=== PATIENT | female | born 1985 | race African-American/Black ===

== ENCOUNTER 2020-11-30 13:01 | Emergency (ER) | payer MEDICAID ==
[~2020-11-30] VITALS: Ht 170.2 cm; Wt 73.0 kg
[~2020-11-30 13:01] MED LIST: ADVIL
[2020-11-30] MEDS ORDERED: KETOROLAC 10MG TABLET PO ONE (14:00)
[2020-11-30 14:24] LABS: HEMATOCRIT 27.4 % (36.0-48.0); MEAN CORPUSCULAR HEMOGLOBIN 29.3 pg (28.0-32.0); MEAN CORPUSCULAR VOLUME 88.7 fL (81.0-99.0); PLATELET 446 x1000/uL (130-400); RED BLOOD CELL COUNT 3.09 mill/uL (4.2-5.4); RED CELL DISTRIBUTION WIDTH 13.9 % (11.6-14.6)
[2020-11-30 14:33] LABS: CHLORIDE 103 mEq/L (98-107)
[2020-11-30] MEDS ORDERED: TRAM50TA3 MT (18:23)
[2020-11-30] MEDS ORDERED: CEPH500C2 MT (18:23)
[2020-11-30 18:49] VITALS: BP 120/78
== END 2020-11-30 19:01 | disposition home or self-care (01) ==
LOC: ER 13:44
DX: L76.32 Postprocedural hematoma of skin and subcutaneous tissue following other procedure (principal); Y83.8 Other surgical procedures as the cause of abnormal reaction of the patient, or of later complication, without mention of misadventure at the time of the procedure; Y92.018 Other place in single-family (private) house as the place of occurrence of the external cause
CPT/HCPCS: 36415; 71046; 76641; 80048; 85027; 93005; 99285

== ENCOUNTER 2020-12-01 08:26 | Emergency (ER) | payer MEDICAID, OTHER ==
[~2020-12-01] VITALS: Ht 170.2 cm; Wt 72.0 kg
[~2020-12-01 08:26] MED LIST changes: +CEPH500C2 MT; +TRAM50TA3 MT
[2020-12-01 08:45] VITALS: BP 132/77
[2020-12-01] MEDS ORDERED: SODIUM CHLORIDE 0.9% 1,000 ML IV ONE (09:00)
== END 2020-12-01 09:33 | disposition left against medical advice (07) ==
LOC: ER 08:26
DX: N64.89 Other specified disorders of breast (principal); D64.9 Anemia, unspecified; I10 Essential (primary) hypertension
CPT/HCPCS: 99283; J7030; 99281